=== PATIENT | female | born 1945 | race Caucasian/White ===

== ENCOUNTER 2023-06-05 03:21 | Emergency (ER) | payer MEDICARE, SELFPAY ==
--- NOTE | 2023-06-05 03:15 | DI.RAD_ITS ---
Exam(s) XR PELVIS AP XR KNEE LT 3V AP,LAT,ROSE XR FEMUR LT EXAM: XR PELVIS AP, XR femur LT, XR knee LT 3 V CLINICAL HISTORY: fall, pain in hip with ambulation. TECHNIQUE: 2D digital imaging was performed.Eight images were obtained. COMPARISON: CR,XR XR KNEE LT 3V AP,LAT,ROSE from 06/05/2023 CR,XR XR FEMUR LT from 06/05/2023 FINDINGS: BONES: No acute fracture is present. No bony destructive lesion is seen. JOINTS: No dislocation present. The joint spaces are well maintained. SOFT TISSUE: Normal. IMPRESSION: No acute fracture or dislocation is seen in the pelvis, left femur or left knee. DATA REPOSITORY: RADIATION DOSE DELIVERED:
--- NOTE | 2023-06-05 03:15 | DI.RAD_ITS ---
Exam(s) XR ANKLE LT COMPLETE EXAM: XR ANKLE LT COMPLETE CLINICAL HISTORY: fall, twisted ankle, lateral pain TECHNIQUE: 2D digital imaging was performed of the left ankle. Three images were obtained. AP, lat eral and oblique views were obtained. COMPARISON: No exams were available for comparison FINDINGS: BONES: There is a mildly displaced acute fracture in the tip of the lateral malleolus. No bony destr uctive lesion is seen. Note is made of a lucency in the medial aspect of the talar dome. There is a small plantar calcaneal spur. On the lateral view there is a calcifications seen adjacent to the ant erior calcaneus and the base of the 5th metatarsal. A small avulsion fracture cannot be excluded. JOINTS:The ankle mortise is normally aligned. SOFT TISSUE: There is soft tissue swelling about the ankle particularly laterally. IMPRESSION: 1. Findings suspicious for fracture involving the base of the lateral malleolus with associated soft tissue swelling. 2. Calcification adjacent to the anterior calcaneus and the base of the 5th metatarsal bone. Dystrop hic calcification versus small avulsion fracture. Please correlate clinically. A CT scan of the ank le may be considered for further evaluation. DATA REPOSITORY: RADIATION DOSE DELIVERED:
[2023-06-05 03:26] VITALS: BP 179/87; PULSE 80; RESP 16; TEMP 36.9; O2SAT 98
--- NOTE | 2023-06-05 03:29 | ED.GENADUL_ITS ---
Discharge Plan Disposition Patient Disposition: Home Condition: Good Discharge Details Clinical Impression: Fall, Left ankle sprain Primary Care Provider: Unknown,Unknown ED Provider: Jorge De La Rosa Home Meds and New Rx's Prescriptions: No Action No Known Home Meds Discharge Instructions Instructions: Ankle Sprain (ED) Additional Instructions: At this time the x-ray has returned normal with no signs of large fracture per radiology. There is a small area that may represent a very tiny avulsion fracture, but it is not clear if this is old or new. It is likely that you caused a significant sprain of your ligaments and a contusion on the bones. There is a chance that there is a small fracture that cannot be seen on the x- ray at this time. If you notice persistent pain after a week of conservative therapy with a walking boot you may require repeat imaging. Please take Tylenol as needed for pain. You can also use [id number] Voltaren/diclofenac gel to the tender areas to help with pain. Please ice the area frequently to diminish the swelling. If you notice any worsening of your symptoms, or any new symptoms such as vomiting, diarrhea, fever, chills, shortness of breath, chest pain, numbness, weakness, or fainting , please return immediately to the emergency department for reevaluation. Please follow up with your primary care provider as soon as possible for reassessment and reevaluation. As always, it was a pleasure participating in your medical care today. HPI General Date/Time Provider Initiated Documentation: 06/05/23 03:23 . HPI Narrative: This is a pleasant 77-year-old female with no significant past medical history who presents today for evaluation of left lower extremity pain after a fall. Patient states that she was visiting [place] and her daughters ling diehl, unfortunately when she got up at around 11 PM she slipped while stepping out the door and twisted her left ankle after her. This caused her to fall and land on the left lower extremity. She did also slightly hurt her right knee. She denies hitting her head or any loss of consciousness. She took Tylenol 1000 mg after this, but the pain persisted. [facility]. Whenever the patient bears weight she has pain in both the ankle but also radiating up to the left knee and left hip. Right knee is only mildly sore. No significant pain with weightbearing for the right. She denies any other complaints at this time. No other modifying factors. Related Data Home Medications Medication Instructions Recorded Confirmed Unknown [No Known Home Meds] 06/05/23 06/05/23 Allergies Allergy/AdvReac Type Severity Reaction Status Date / Time Penicillins Allergy Severe Hives Verified 06/05/23 03:31 Sulfa (Sulfonamide Allergy Severe Hives Verified 06/05/23 03:31 Antibiotics) Review of Systems All systems reviewed & are unremarkable except as noted in HPI and below Exam Narrative Exam Narrative: 1.Const: Well-nourished, Well-developed, appearing stated age 2.Eyes: PERRL, no conjunctival injection, and symmetrical lids. 3.ENT: Atraumatic external nose and ears. Moist MM. Neck: Symmetric, trachea midline, No thyromegaly. 4.CVS: +S1/S2, No murmurs or gallops. Peripheral pulses 2+ and equal in all extremities. Brisk capillary refill in all extremities. 5.RESP: Unlabored respiratory effort. Clear to auscultation bilaterally. No wheezes rales or rhonchi 6.GI: Soft, Nontender/Nondistended, No hepatosplenomegaly. No guarding or rebound. 7.MSK: Left ankle demonstrates swelling and edema in the lateral aspect of the ankle with tenderness in that area. Mild tenderness over the proximal component of the foot and midfoot region. Mild pain on the lateral aspect of the left knee on palpation for the proximal fibula. No significant tibial plateau pain. No significant patellar pain. Mild tenderness in the left hip with palpation. Worse with weightbearing. Right lower extremity demonstrates no significant tenderness. 8.Skin: Warm, Dry. No rashes or lesions. 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 Sensation grossly intact, no focal neurologic deficits. 10.Psych: (AAO) x3. Appropriate mood and affect Medical Decision Making This is a pleasant 77-year-old female with no significant past medical history who presents today for evaluation of left lower extremity pain after a fall. Patient states that she was visiting [place] and her daughters ling diehl, unfortunately when she got up at around 11 PM she slipped while stepping out the door and twisted her left ankle after her. This caused her to fall and land on the left lower extremity. She did also slightly hurt her right knee. She denies hitting her head or any loss of consciousness. She took Tylenol 1000 mg after this, but the pain persisted. She presents tonight at 3:30 AM for further evaluation. Whenever the patient bears weight she has pain in both the ankle but also radiating up to the left knee and left hip. Right knee is only mildly sore. No significant pain with weightbearing for the right. She denies any other complaints at this time. No other modifying factors. Exam demonstrates well-appearing female, swelling and tenderness noted on the left lateral ankle, and then mild tenderness for the left lateral knee and left hip. Right lower extremity unremarkable. No other significant signs of trauma for the remainder of the exam. Suspect potential fracture as well as contusion. Will get x-rays to evaluate for fracture, monitor closely and reassess. 5:34 AM X-ray of the hip knee and femur are normal with no acute process. X-ray of the ankle demonstrates questionable small calcific osseous fragment adjacent to the inferior tip of the fibula and adjacent to the distal calcaneus/proximal end of the fifth metatarsal. Patient does have pain in this area, this certainly may be an avulsion fracture albeit mild. Patient was given walking boot and crutche s and was able to ambulate well with this. Recommend nonweightbearing for the next week, and then a gradual transition. Discussed red flags for which to return. Recommend repeat imaging if symptoms continue or worsen. No other signs of trauma at this time. Patient will be discharged home. Discussed red flags which return. I have extensively reviewed the treatment plan and discharge instructions with the patient and their family. I have addressed all patient concerns at this time. The patient and family was made aware of what symptoms to monitor for that would warrant a return to the emergency department. Discussed the plan with the patient and family, they demonstrate verbal understanding and agreement with our assessment and plan at this time. The documentation in this chart was dictated using [employer] dictation software. Please excuse any dictation errors. FINDINGS: Bones/joints: No fracture or dislocation. Soft tissues: Normal. IMPRESSION: No fracture or dislocation. Thank you for allowing us to participate in the care of your patient. Dictated and Authenticated by: Lucien Calix MD 06/05/2023 4:51 AM Eastern Time ([place] & [place]) FINDINGS: Bones/joints: Unremarkable. No acute fracture. Soft tissues: Unremarkable. IMPRESSION: No acute findings. Thank you for allowing us to participate in the care of your patient. Dictated and Authenticated by: Lucien Calix MD 06/05/2023 4:55 AM Eastern Time ([place] & [place]) FINDINGS: Bones/joints: Unremarkable. No acute fracture. Soft tissues: Unremarkable. IMPRESSION: No acute findings. Thank you for allowing us to participate in the care of your patient. Dictated and Authenticated by: Lucien Calix MD 06/05/2023 5:02 AM Eastern Time ([place] & [place]) FINDINGS: Bones/joints: There are calcific/osseous fragments adjacent to the inferior tip of the fibula and adjacent to the distal calcaneus/proximal end of the 5th metatarsal, potentially signifying avulsion fractures of indeterminate age. No priors for comparison. Soft tissues: Diffuse soft tissue swelling of the ankle. IMPRESSION: 1. There are calcific/osseous fragments adjacent to the inferior tip of the fibula and adjacent to the distal calcaneus/proximal end of the 5th metatarsal, potentially signifying avulsion fractures of indeterminate age. No priors for comparison. 2. Diffuse soft tissue swelling of the ankle. Thank you for allowing us to participate in the care of your patient. Dictated and Authenticated by: Lucien Calix MD 06/05/2023 5:05 AM Eastern Time ([place] & [place]) Quality:SDOH Health Related Social Needs: No Data to Display PFSH All Active Problems (Updated 06/05/23 @ 04:58 by Jorge De La Rosa DO) Left ankle sprain (Acute) Fall (Acute) Social History Smoking/Tobacco Use Status: Former Tobacco Use Smoking risk assessment performed?: Yes Alcohol Intake: current Alcohol Intake frequency: holidays/special occasions only Alcohol type: hard liquor Drug use: Never Substance use type: does not use Housing: house Do you feel safe at home: Yes Do you feel safe in your relationship?: Yes
--- NOTE | 2023-06-05 04:52 | DI.VRAD_ITS ---
PROCEDURE INFORMATION: Exam: XR Left Knee Exam date and time: 06/05/2023 3:49 AM Age: 77 years old Clinical indication: Pain and injury or trauma; Fall; Blunt trauma; Knee; Left; Additional info: Fall, left lateral knee pain TECHNIQUE: Imaging protocol: Radiologic exam of the left knee. Views: 3 views. COMPARISON: CR XR FEMUR LT 06/05/2023 3:47 AM FINDINGS: Bones/joints: No fracture or dislocation. Soft tissues: Normal. IMPRESSION: No fracture or dislocation. Dictated and Authenticated by: Lucien Calix MD. Ordering:CHEYANNE Patel MD
--- NOTE | 2023-06-05 04:56 | DI.VRAD_ITS ---
PROCEDURE INFORMATION: Exam: XR Left Femur Exam date and time: 06/05/2023 3:47 AM Age: 77 years old Clinical indication: Pain and injury or trauma; Fall; Blunt trauma; Hip; Left; Additional info: Fall, pain in hip with ambulation TECHNIQUE: Imaging protocol: Radiologic exam of the left femur. Views: 2 views. COMPARISON: CR XR PELVIS AP 06/05/2023 3:46 AM FINDINGS: Bones/joints: Unremarkable. No acute fracture. Soft tissues: Unremarkable. IMPRESSION: No acute findings. Dictated and Authenticated by: Lucien Calix MD. Ordering:CHEYANNE Patel MD
--- NOTE | 2023-06-05 05:03 | DI.VRAD_ITS ---
PROCEDURE INFORMATION: Exam: XR Pelvis Exam date and time: 06/05/2023 3:46 AM Age: 77 years old Clinical indication: Pain and injury or trauma; Fall; Blunt trauma (contusions or hematomas); Hip pain; Left hip; Additional info: Fall, pain in hip with ambulation TECHNIQUE: Imaging protocol: Radiologic exam of the pelvis. Views: 1 or 2 view. COMPARISON: No relevant prior studies available. FINDINGS: Bones/joints: Unremarkable. No acute fracture. Soft tissues: Unremarkable. IMPRESSION: No acute findings. Dictated and Authenticated by: Lucien Calix MD. Ordering:CHEYANNE Patel MD
--- NOTE | 2023-06-05 05:05 | DI.VRAD_ITS ---
PROCEDURE INFORMATION: Exam: XR Left Ankle Exam date and time: 06/05/2023 4:00 AM Age: 77 years old Clinical indication: Pain and injury or trauma; Fall; Blunt trauma; Ankle; Left; Additional info: Fall, twisted ankle, lateral pain TECHNIQUE: Imaging protocol: Radiologic exam of the left ankle. Views: 3 or more views. COMPARISON: CR XR KNEE LT 3V AP,LAT,ROSE 06/05/2023 3:49 AM FINDINGS: Bones/joints: There are calcific/osseous fragments adjacent to the inferior tip of the fibula and adjacent to the distal calcaneus/proximal end of the 5th metatarsal, potentially signifying avulsion fractures of indeterminate age. No priors for comparison. Soft tissues: Diffuse soft tissue swelling of the ankle. IMPRESSION: 1. There are calcific/osseous fragments adjacent to the inferior tip of the fibula and adjacent to the distal calcaneus/proximal end of the 5th metatarsal, potentially signifying avulsion fractures of indeterminate age. No priors for comparison. 2. Diffuse soft tissue swelling of the ankle. Dictated and Authenticated by: Lucien Calix MD. Ordering:CHEYANNE Patel MD
== END 2023-06-05 05:46 | disposition home or self-care (01) ==
PROVIDERS: Emergency Provider Student in an Organized Health Care Education/Training Program
DX: S93.402A Sprain of unspecified ligament of left ankle, initial encounter (principal); M77.32 Calcaneal spur, left foot; Z87.891 Personal history of nicotine dependence; X50.1XXA Overexertion from prolonged static or awkward postures, initial encounter; Y93.01 Activity, walking, marching and hiking; Y93.89 Activity, other specified
CPT/HCPCS: 73552; 73562; 99283; 72170; 73610